=== PATIENT | female | born 1960 | race Caucasian/White ===

== ENCOUNTER 2018-02-15 13:45 | Emergency (ER) | payer MEDICAID, MEDICARE ==
[2018-02-15 13:52] VITALS: BP 125/79
--- NOTE | 2018-02-15 14:14 | UC ---
Respiratory Complaint HPI - HPI Summary HPI Summary: 58 yo female presents with sinus pain/pressure/congestion and a dry cough for the last 1.5 weeks. Feels it is getting worse. Has not been taking anything OTC. Denies fever, chills, sore throat, SOB, chest pain - History of Current Complaint Hx Obtained From: Patient Onset/Duration: Gradual Onset Timing: Constant Severity Initially: Moderate Severity Currently: Severe Pain Intensity: 8 Pain Scale Used: 0-10 Numeric Character: Cough: Nonproductive <Everardo Mulligan - Last Filed: 02/15/18 16:42> <Rafael Diego - Last Filed: 02/15/18 18:08> - History of Current Complaint Chief Complaint: UCRespiratory Stated Complaint: URI Time Seen by Provider: 02/15/18 14:14 - Allergies/Home Medications Allergies/Adverse Reactions: Allergies Allergy/AdvReac Type Severity Reaction Status Date / Time amoxicillin [From Augmentin] Allergy Unknown Verified 02/15/18 14:25 Reaction Details ciprofloxacin [From Cipro] Allergy Hives Verified 02/15/18 13:53 clavulanic acid Allergy Unknown Verified 02/15/18 14:25 [From Augmentin] Reaction Details latex Allergy hiven Verified 02/15/18 13:53 PMH/Surg Hx/FS Hx/Imm Hx Psychological History: Anxiety, Bipolar Disorder - Surgical History Surgical History: Yes Surgery Procedure, Year, and Place: polyps removed cervix and colon - Family History Known Family History: Positive: None - Social History Lives: With Family Alcohol Use: Occasionally Substance Use Type: None Smoking Status (MU): Never Smoked Tobacco <Everardo Mulligan - Last Filed: 02/15/18 16:42> Review of Systems Constitutional: Negative Skin: Negative Eyes: Negative ENT: Nasal Discharge, Sinus Congestion, Sinus Pain/Tenderness Respiratory: Cough Cardiovascular: Negative Gastrointestinal: Negative Neurovascular: Negative Neurological: Negative Psychological: Negative All Other Systems Reviewed And Are Negative: Yes <Everardo Mulligan Last Filed: 02/15/18 16:42> Physical Exam - Summary Physical Exam Summary: GENERAL: NAD. WDWN. No pain distress. SKIN: No rashes, sores, lesions, or open wounds. HEENT: Head: AT/NC Eyes: Conjunctiva clear without inflammation or discharge. Ears: Hearing grossly normal. TMs intact, no bulging, erythema, or edema. Nose: Nasal mucosa mildly swollen and erythematous with yellow/ clear discharge. TTP maxillary and frontal sinus. Throat: Posterior oropharynx without exudates, erythema, or tonsillar enlargement. Uvula midline. NECK: Supple. Nontender. No lymphadenopathy. CHEST: Mild wheezing throughout. No r/r. No accessory muscle use. Breathing comfortably and in no distress. CV: RRR. Without m/r/g. Pulses intact. Brisk cap refill. NEURO: Alert. CN II-XII grossly intact. PSYCH: Age appropriate behavior. Triage Information Reviewed: Yes Vital Signs: Initial Vital Signs Temp 97 F 02/15/18 13:49 Pulse 74 02/15/18 13:49 Resp 17 02/15/18 13:49 BP 125/79 02/15/18 13:49 Pulse Ox 99 02/15/18 13:49 <Everardo Mulligan - Last Filed: 02/15/18 16:42> Vital Signs: Initial Vital Signs Temp 97 F 02/15/18 13:49 Pulse 74 02/15/18 13:49 Resp 17 02/15/18 13:49 BP 125/79 02/15/18 13:49 Pulse Ox 99 02/15/18 13:49 <Rafael Diego - Last Filed: 02/15/18 18:08> Diagnostic Evaluation - Laboratory O2 Sat by Pulse Oximetry: 99 <Everardo Mulligan - Last Filed: 02/15/18 16:42> Re-Evaluation - Re-Evaluation First Eval Re-Evaluation Time: 14:51 Change: Improved Comment: Brandonb - significant improvement subjectively. Less wheezing on exam <Everardo Mulligan Last Filed: 02/15/18 16:42> Respiratory Course/Dx - Course Course Of Treatment: Sinusitis. Bronchitis - improved s/p duoneb. - Differential Dx/Diagnosis Provider Diagnoses: Sinusitis. Bronchitis <Everardo Mulligan Last Filed: 02/15/18 16:42> Discharge - Sign-Out/Discharge Documenting (check all that apply): Discharge/Admit/Transfer - Billing Disposition and Condition Condition: STABLE Disposition: Home <Everardo Mulligan Last Filed: 02/15/18 16:42> - Billing Disposition and Condition Condition: STABLE Disposition: Home <Rafael Diego - Last Filed: 02/15/18 18:08> - Discharge Plan Condition: Stable Disposition: HOME Prescriptions: Benzonatate CAP* [Tessalon 100 MG CAP*] 100 mg PO TID PRN #15 cap PRN Reason: Cough DOXYcycline CAP(*) [DOXYcycline 100MG CAP(*)] 100 mg PO BID #14 cap Patient Education Materials: Acute Bronchitis (ED) Referrals: Lanette Nguyen MD [Primary Care Provider] - Additional Instructions: If you develop a fever, shortness of breath, chest pain, new or worsening symptoms - please call your PCP or go to the ED. Your blood pressure was high at todays visit. Please see your primary provider within 4 weeks for recheck and re-evaluation. Per institutional requirements, I have reviewed the chart, however, I was not consulted specifically or made aware of this patient by the above midlevel provider. I did not personally evaluate, interact with , or disposition this patient.
[2018-02-15] MEDS ORDERED: Albuterol/Ipratropium NEB.SOL* Albuterol 2.5 MG/Ipratropium 0.5 MG 3 ML INH ONE (14:19)
== END 2018-02-15 15:02 | disposition home or self-care (01) ==
LOC: UCEAST 13:45
DX: J32.9 Chronic sinusitis, unspecified (principal); J40 Bronchitis, not specified as acute or chronic; Z88.0 Allergy status to penicillin; Z88.1 Allergy status to other antibiotic agents; Z91.040 Latex allergy status
CPT/HCPCS: 81003; 99212; A9270-GY; G0463

== ENCOUNTER 2019-11-04 15:56 | Emergency (ER) | payer MEDICARE, MEDICAID ==
[2019-11-04 16:12] VITALS: BP 128/75
--- NOTE | 2019-11-04 17:11 | UC ---
Complaint Female HPI - HPI Summary HPI Summary: Patient is a 59-year-old female presenting with urinary frequency "several months" that she states has worsened the past 3 nights so she is concerned about a UTI. States she is now waking up 3-4 times each night to go to the bathroom. Denies dysuria, hematuria, malodorous urine. Does note mild bladder discomfort. Denies flank pain. Denies incontinence. Denies fever and chills. Denies nausea and vomiting. States she "only drinks 4-6 glasses of water each day and only one before bedtime." PMHx significant for bipolar disorder, depression, anxiety. - History Of Current Complaint Chief Complaint: UCGU Stated Complaint: URINARY COMPLAINT Hx Obtained From: Patient Pain Intensity: 6 Pain Scale Used: 0-10 Numeric - Allergies/Home Medications Allergies/Adverse Reactions: Allergies Allergy/AdvReac Type Severity Reaction Status Date / Time amoxicillin [From Augmentin] Allergy Unknown Verified 11/04/19 16:13 Reaction Details ciprofloxacin [From Cipro] Allergy Hives Verified 11/04/19 16:13 clavulanic acid Allergy Unknown Verified 11/04/19 16:13 [From Augmentin] Reaction Details latex Allergy hiven Verified 11/04/19 16:13 meloxicam Allergy See Comment Verified 11/04/19 16:13 oxcarbazepine Allergy See Comment Verified 11/04/19 16:13 [From Trileptal] Home Medications: Home Medications Venlafaxine ER (NF) [Effexor ER (NF)] 150 mg PO DAILY 06/11/15 [History Confirmed 11/04/19] clonazePAM TAB(*) [KlonoPIN TAB(*)] 0.5 mg PO DAILY PRN 06/11/15 [History Confirmed 11/04/19] Letrozole (NF) [Femara (NF)] 2.5 mg PO DAILY #0 tab 07/29/18 [Rx Confirmed 11/04] Venlafaxine EXT RELEASE CAP* [Effexor Xr CAP*] 112.5 mg PO DAILY #21 cap.sr [Rx Confirmed 11/04/19] Cariprazine 3 mg CAP (NF) [VRAYLAR 3 mg CAP (NF)] 3 mg PO DAILY 11/04/19 [ History Confirmed 11/04/19] Gabapentin CAP(*) [Neurontin 300 CAP(*)] 600 mg PO BID 11/04/19 [History Confirmed 11/04/19] [employer] [place] Carbonate 150 mg PO BEDTIME 11/04/19 [History Confirmed 11/04/19] [employer] [place] Carbonate [[employer] [place] Carbonate 300 mg cap] 600 mg PO BEDTIME 11/04/19 [ History Confirmed 11/04/19] PMH/Surg Hx/FS Hx/Imm Hx Psychological History: Anxiety, Depression, Bipolar Disorder - Surgical History Surgical History: Yes Surgery Procedure, Year, and Place: 2015 right breast lobectomy. 10-15 years ago polyps removed cervix and colon. 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 Negative: Fever, Chills Respiratory: Positive: Negative Cardiovascular: Positive: Negative Gastrointestinal: Positive: Abdominal Pain - "bladder discomfort" Genitourinary: Positive: Frequency, Urgency Musculoskeletal: Positive: Negative Neurological/Mental Status: Positive: Negative Physical Exam - Summary Physical Exam Summary: Vital Signs Reviewed: Yes A+Ox3, no distress Eyes: Conjunctiva Clear ENT: Hearing grossly normal neck: supple Respiratory: Positive: No respiratory distress, No accessory muscle use Cardiovascular: skin color reflect adequate perfusion Abd: soft, nt/nd, BS+, no guarding Musculoskeletal Exam: TRACEY x 4 without difficulty Neurological: Positive: Alert, ambulatory without difficulty Psychological: Positive: age appropriate behavior, anxious Skin: Positive: no rash, no ecchymosis Vital Signs: Initial Vital Signs Temp 99.3 F 11/04/19 16:07 Pulse 72 11/04/19 16:07 Resp 16 11/04/19 16:07 BP 128/75 11/04/19 16:07 Pulse Ox 99 11/04/19 16:07 Lab Results 11/04/19 Range/Units 16:42 POC Urine Color Yellow POC Urine Clarity Clear POC Urine pH 6.0 (5-9) POC Ur Specif Fosters 1.010 (1.010-1.030) POC Urine Protein Negative (Negative) POC Ur Glucose (UA) Negative (Negative) POC Urine Ketones Negative (Negative) POC Urine Blood Negative (Negative) POC Urine Nitrite Negative (Negative) POC Urine Bilirubin Negative (Negative) POC Urine Urobilinogen 0.2 (Negative) POC U Leukocyte Esteras Negative (Negative) Complaint Female Dx - Course Course Of Treatment: UA negative. Discussed no sign of infection and urine with the patient. Informed her that a culture has been sent and she will be notified with any positive results warranting treatment. Instructed patient to follow up with pcp and urology as soon as possible for further evaluation of urinary frequency. - Differential Dx/Diagnosis Provider Diagnosis: Increased urinary frequency Discharge ED - Sign-Out/Discharge Documenting (check all that apply): Patient Departure All imaging exams completed and their final reports reviewed: No Studies - Discharge Plan Condition: Stable Disposition: HOME Patient Education Materials: Urinary Urgency and Frequency (DC) Referrals: Lanette Nguyen MD [Primary Care Provider] - As Soon As Possible Wilber Hidalgo MD [Medical Doctor] - As Soon As Possible Additional Instructions: As discussed, your urine did not reveal an infection today. A urine culture has been sent and you'll be notified with any positive results warranting treatment. Follow-up with your primary care provider or the urology referral listed below for further evaluation of urinary frequency. - Billing Disposition and Condition Condition: STABLE Disposition: Home
== END 2019-11-04 17:44 | disposition home or self-care (01) ==
LOC: UCEAST 15:56
DX: R35.0 Frequency of micturition (principal); F41.8 Other specified anxiety disorders; F31.9 Bipolar disorder, unspecified; Z88.0 Allergy status to penicillin; Z88.1 Allergy status to other antibiotic agents; Z91.040 Latex allergy status; Z88.6 Allergy status to analgesic agent; Z88.8 Allergy status to other drugs, medicaments and biological substances; Z79.899 Other long term (current) drug therapy
CPT/HCPCS: 81003; 87086; 99211; G0463